=== PATIENT | male | born 1985 | race Caucasian/White ===

== ENCOUNTER 2016-12-30 07:04 | Emergency (ER) | payer SELFPAY ==
--- NOTE | 2016-12-30 07:18 | EDM.PDOC ---
ED HPI GENERAL MEDICAL PROBLEM - General Chief Complaint: Burn Stated Complaint: CHEMICAL BURN ON BOTH HANDS Time Seen by Provider: 12/30/16 07:13 Source of Information: Reports: Patient History Limitations: Reports: No Limitations - History of Present Illness INITIAL COMMENTS - FREE TEXT/NARRATIVE: 31-year-old male presents the ED with contact dermatitis to his face involves his nose his ears his lips and the dorsal aspect of both hands and wrists this is a work-related injury. 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 He ended up getting a lot of alignment, cement dust on his skin i.e. his face and hands 3 days ago. This is subsequently produced a significant contact dermatitis of the face ears and blistering of his lower lips and dorsal hands. He states that he was given gloves 2 days after the fact that it actually made him sweat worse inside and made the dermatitis even worse. Chief complaint is severe burning pain in the distribution of the superficial morgan from the contact dermatitis. He did receive a tetanus toxoid update in [facility]. Patient has already showered intercourse and wash the skin thoroughly several times in effort to get rid of the irritant. However the irritation continues due to its penetration to the skin before he could get it off. Onset: Other (Exposure occurred on December 27.) Onset Date: 12/27/16 Duration: Day(s): Location: Reports: Face, Neck, Upper Extremity, Left, Upper Extremity, Right ( Dorsal aspect of hand dorsal aspect of hand) Quality: Reports: Burning Severity: Moderate Improves with: Reports: None Worsens with: Reports: None Context: Reports: Other (Severe contact dermatitis from exposure to [place] in cement dust) Associated Symptoms: Reports: No Other Symptoms Treatments [employer]: Reports: Other (see below) - Related Data Allergies Allergy/AdvReac Type Severity Reaction Status Date / Time No Known Allergies Allergy Verified 12/30/16 07:11 Home Meds: Home Meds Betamethasone Valerate 45 gm TP BID #1 cream..g. 12/30/16 [Rx] Hydrocortisone [Hydrocortisone 2.5% Crm] 30 gm TOP BID #1 tube 12/30/16 [Rx] Social & Family History - Living Situation & Occupation Occupation: Employed ED ROS GENERAL - Review of Systems Review Of Systems: See Below Constitutional: Reports: No Symptoms HEENT: Reports: No Symptoms Respiratory: Reports: No Symptoms Cardiovascular: Reports: No Symptoms Endocrine: Reports: No Symptoms GI/Abdominal: Reports: No Symptoms : Reports: No Symptoms Musculoskeletal: Reports: No Symptoms Skin: Reports: Other (Patient has a severe contact dermatitis with primarily erythema involving his entire face particularly his nose with blistering of his right lower lip in from the midline to the lateral aspect. He's also got significant inflammation of his pinna of his ears worse on the right as compared to the left. On his hands he has severe erythema) Neurological: Reports: No Symptoms ( of both dorsal hands without any skin breakdown or blistering at this time) Psychiatric: Reports: No Symptoms Hematologic/Lymphatic: Reports: No Symptoms Immunologic: Reports: No Symptoms ED EXAM, SKIN/RASH Exam: See Below Exam Limited By: No Limitations General Appearance: Alert, WD/WN, Mild Distress Ears: Other (Inflammation of the pinna bilaterally with erythema but no blistering.) Nose: Other (Skin involvement of the nose) Throat/Mouth: Inflammation ( All of the periorbital tissue is erythematous and inflamed.), Other (Blistering of the right lower lip from the midline to the lateral aspect.) Head: Atraumatic, Normocephalic Neck: Other (His anterior lateral neck is also involved and slightly erythematous combined with a sunburn.) Respiratory/Chest: No Respiratory Distress, Lungs Clear, Normal Breath Sounds, No Accessory Muscle Use Cardiovascular: Normal Peripheral Pulses, Regular Rate, Rhythm, No Edema, No JVD , No Murmur, No Rub Peripheral Pulses: 3+: Posterior Tibial (L), Posterior Tibial (R), Dorsalis Pedis (L), Dorsalis Pedis (R) Extremities: Other Skin: Warm, Dry, Erythema (Erythema dorsal hands entire face since particularly the bridge of his nose and tip of his nose and both ear pinnas. Blisters to the right lower upper lip as described above.), Other Location, Skin: Face, Neck, Upper Extremity, Right, Upper Extremity, Left ( Dorsal hand and wrist dorsal hand and wrist.) Characteristics: Macular, Confluent Associated features: Warmth, Tenderness, Wwelling, Inflammation Course - Vital Signs Last Recorded V/S: Last Vital Signs Temp 36.9 C 12/30/16 07:10 Pulse 86 12/30/16 07:10 Resp 18 08/10/17 07:10 BP 136/89 12/30/16 07:10 Pulse Ox 96 12/30/16 07:10 - Radiology Interpretation Free Text/Narrative:: 31-year-old male brought to the ED for evaluation of increasing pain and worsening of the skin inflammation of his face and dorsal hands after being exposed to cement dust in the workplace 3 days ago. He was unable to get the cement dust. His skin immediately and with exposure to water and the prolonged contact with his skin is produced a severe contact dermatitis and blistering particularly of his right lower lung lip. It involves both dorsal hands and wrists and his entire face and a bit of his neck. He will be treated with hydrocortisone 2.5% cream to his face for 3 days and betamethasone cream to his dorsal hands for 3-5 days until the swelling and inflammation settles. He will only be able to place bacitracin on his lip wounds. Tetanus toxoid was updated in [place] a day or 2 ago. He will be off work for the next 5 days due to potential skin further damage and breakdown from sun burn and other irritants in the workplace. Departure - Departure Time of Disposition: 07:23 Disposition: Home, Self-Care 01 Condition: Fair Clinical Impression: Contact dermatitis Qualifiers: Contact dermatitis type: irritant Contact dermatitis trigger: other chemical product Qualified Code(s): L24.5 - Irritant contact dermatitis due to other chemical products - Discharge Information Prescriptions: Betamethasone Valerate 45 gm TP BID #1 cream..g. Hydrocortisone [Hydrocortisone 2.5% Crm] 30 gm TOP BID #1 tube Instructions: Contact Dermatitis Forms: ED Department Discharge, ED Return to Work/School Form Additional Instructions: Evaluation in the emergency room today in regards to severe contact dermatitis to the skin of the face involving the nose the lips the ears and parts of your neck as well as both dorsal hands and wrist areas from exposure to [place] in cement dust. Exposure occurred over 3 days ago and has produced a significant skin inflammatory response with blistering of your right lower lip. Tetanus is up-to-date. It is to use high-dose hydrocortisone 2.5% cream to the facial area twice daily for the next 3-5 days until the morgan and erythema settle down. To the hands use a betamethasone valerate cream twice daily as well again until the wounds heal completely Use bacitracin ointment to the lip blisters to reduce pain and inflammation and prevent secondary infection. Suggest off work for the next 5 days to allow the skin to heal as further exposure to sun and the elements will cause further skin irritation and breakdown.
[2016-12-30 07:28] VITALS: BP 136/89
== END 2016-12-30 07:42 | disposition home or self-care (01) ==
LOC: JD.ED 07:04
DX: L25.3 Unspecified contact dermatitis due to other chemical products (principal)
CPT/HCPCS: 99283